=== PATIENT | male | born 1950 | race Caucasian/White ===

== ENCOUNTER 2017-06-25 08:54 | Outpatient (CLI) | payer OTHER ==
--- NOTE | 2017-06-25 12:33 | MRI ---
RIGHT SHOULDER MRI WITH IV CONTRAST: HISTORY: A 66-year-old male with right shoulder pain for two months. FINDINGS: The patient is claustrophobic and there is considerable motion artifact. Multiplanar, multisequence MRI examination of the right shoulder demonstrates considerable motion art ifact. There is no intact biceps tendon seen intraarticularly or within the bicipital groove. There are some arthrosis changes with subchondral cystic changes of the inferior glenoid, as well as a sma ll focus in the superior glenoid. The region of the superior labrum and biceps anchor is very poorly defined and has some high signal associated with it, probably related to a prior biceps tear at the anchor. There is at least a high-grade, undersurface partial-thickness tear versus a small, punctate full-thickness tear at the level of the anterior infraspinatus tendon insertion. There is also a li near high-grade, partial-thickness, undersurface insertional tear of the infraspinatus tendon, withou t evidence for tendon retraction. Prominent AC joint arthrosis changes are noted with some undersurf fernie spurring of the distal clavicle, as well as some minimal fluid and fat change in the subacromial subdeltoid bursa. The subscapularis tendon appears to be intact. The rotator cuff muscles appear wi thin normal limits in signal and volume. IMPRESSION: 1. No intact biceps tendon seen within the bicipital groove or intraarticularly. 2. Abnormal appearing superior labrum and biceps anchor region, probably related to prior biceps tea r. 3. Subchondral cystic changes in the inferior glenoid and a small focus in the superior glenoid. 4. Acromioclavicular joint arthrosis. 5. High-grade, partial-thickness undersurface tears of the supraspinatus and infraspinatus tendons a t the insertion with possible small, punctate, full-thickness component, particularly at the anterior supraspinatus. The exam is somewhat limited because of motion artifact. POS: [facility]
== END 2017-06-25 08:55 | disposition home or self-care (01) ==
LOC: SCSMRI 08:54
PROVIDERS: ATTEND Family Medicine
DX: S46.911D Strain of unspecified muscle, fascia and tendon at shoulder and upper arm level, right arm, subsequent encounter (principal); M24.811 Other specific joint derangements of right shoulder, not elsewhere classified; M19.011 Primary osteoarthritis, right shoulder; S46.011A Strain of muscle(s) and tendon(s) of the rotator cuff of right shoulder, initial encounter

== ENCOUNTER 2017-09-09 12:38 | Outpatient (CLI) | payer BC, OTHER ==
--- NOTE | 2017-09-09 15:05 | CT ---
CT BRAIN: HISTORY: Fall of tree on head. TECHNIQUE: Noncontrast enhanced CT images of the brain are obtained. FINDINGS: CT images of the brain demonstrate an approximately 5.4 mm area of hyperdensity seen at the lateral a spect of the right fourth ventricle, compatible with likely an area of intraventricular choroid plexu s calcification. No evidence of acute intracranial masses, hemorrhages, strokes, or contusions seen. No evidence of c alvarial lesions seen. No other significant abnormality is noted. 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 No acute intracranial abnormality seen. POS: [facility]
== END 2017-09-09 12:39 | disposition home or self-care (01) ==
LOC: TBSIIMAG 12:38
PROVIDERS: ATTEND Neurological Surgery
DX: S06.5X0A Traumatic subdural hemorrhage without loss of consciousness, initial encounter (principal); G93.89 Other specified disorders of brain
CPT/HCPCS: 70450

== ENCOUNTER 2017-11-22 15:44 | Outpatient (CLI) | payer OTHER ==
[2017-11-22 16:17] LABS: #Eosinphils 0.3 thou/uL (0.0-0.7); #Lymphocytes 1.2 thou/uL (1.20-3.40); #Monocytes 0.7 thou/uL (0.11-0.59); #Neutrophils 4.6 thou/uL (1.40-6.50); %Basophils 0.5 % (0.0-1.0); %Eosinophils 4.4 % (0.0-10.0); %Lymphocytes 17.1 % (21.0-51.0); %Monocytes 10.6 % (0.0-10.0); %Neutrophils 67.3 % (42.0-75.0); Mean Corpuscular HGB CONC 34.2 g/dL (32.0-36.0); Mean Corpuscular Hemoglobin 33.8 pg (27.0-31.0); Mean Corpuscular Volume 98.8 fl (80.0-94.0); Mean Platelet Volume 7.4 fL (7.4-10.4); Platelet Count 211 thou/uL (130-400); Red Blood Cell (RBC) Count 4.45 mill/uL (4.70-6.10); White Blood Cell (WBC) Count 6.8 thou/uL (4.8-10.8)
[2017-11-22 16:38] LABS: Anion Gap 11 mmol/L (10-20); BUN (Urea Nitrogen) 15 mg/dL (8.4-25.7); Calc. Creatinine Clearance 0 mL/min (70-130); Calcium 9.1 mg/dL (7.8-10.44); Carbon Dioxide 24 mmol/L (23-31); Chloride 107 mmol/L (98-107); Estimated GFR-MDRD 56; Glucose 120 mg/dL (80-115); Potassium 4.1 mmol/L (3.5-5.1); Sodium 138 mmol/L (136-145)
== END 2017-11-22 15:45 | disposition home or self-care (01) ==
LOC: LABBT 15:44
PROVIDERS: ATTEND Orthopaedic Surgery
DX: Z01.818 Encounter for other preprocedural examination (principal); M75.111 Incomplete rotator cuff tear or rupture of right shoulder, not specified as traumatic
CPT/HCPCS: 80048; 85025; 93005; 93010

== ENCOUNTER 2017-11-25 05:46 | Day surgery (SDC) | payer OTHER ==
[2017-11-22 16:08] VITALS: BMI 30.7
[2017-11-25] MEDS ORDERED: Midazolam HCl 2 mg/2 ml Vial ONE (06:32)
[2017-11-25] MEDS ORDERED: Fentanyl 100 MCG/2 ML VIAL ONE (06:32)
[2017-11-25] MEDS ORDERED: CEFAZOLIN/Water 2 GM/20 ML SYRINGE ONE (06:34)
[2017-11-25] MEDS ORDERED: Promethazine HCl 25 MG/ML VIAL IM PRN (07:08)
[2017-11-25] MEDS ORDERED: Zolpidem Tartrate 5 MG TAB PO PRN (07:08)
[2017-11-25] MEDS ORDERED: HYDROcodone/Acetaminophen 5/325 mg Tablet PO PRN ×2 (07:08)
[2017-11-25] MEDS ORDERED: traMADol HCl 50 MG TAB PO PRN ×2 (07:08)
[2017-11-25] MEDS ORDERED: Ondansetron HCl/PF 4 MG/2 ML Vial IVP PRN (07:08)
[2017-11-25] MEDS ORDERED: Ropivacaine HCl/PF 1,100 MG in Premix Bag 1 BAG NERVE BLCK SCH (07:08)
[2017-11-25] MEDS ORDERED: Ketorolac Tromethamine 30 MG/ML VIAL IVP PRN (07:08)
[2017-11-25] MEDS ORDERED: Fentanyl 100 MCG/2 ML VIAL IV PRN (07:09)
--- NOTE | 2017-11-25 09:03 | OP ---
DATE OF PROCEDURE: 11/25/2017 PREOPERATIVE DIAGNOSES: Rotator cuff tear, right shoulder with impingement. POSTOPERATIVE DIAGNOSES: Rotator cuff tear, right shoulder with impingement. PROCEDURE: Arthroscopic subacromial decompression, arthroscopic rotator cuff repair using Arthrex Tw inFix suture anchor and Arthrex self-punching SwiveLock. SURGEON: Cameron Carter M.D. ANESTHESIA: General. BLOOD LOSS: Minimal. SPECIMEN: None. DRAINS: None. COMPLICATIONS: None. PROCEDURE IN DETAIL: The patient was brought to the operating room where general anesthesia was shantal remy. He was placed in left lateral decubitus position. Right arm was placed in traction and prepped and draped in the usual sterile fashion. Scope was placed in the glenohumeral joint. There was no biceps present. There was only minimal degenerative changes. A full-thickness rotator cuff tear was seen at the supraspinatus. Scope was placed in the subacromial bursa. Bursectomy was performed. C A ligament was taken down. Anterior inferior acromioplasty was performed with a bur. I freshened up the greater tuberosity with a bur. I freshened up the rotator cuff with a shaver, placed a TwinFix suture in the humeral head. Sutures passed through the rotator cuff to have a good watertight repair and then reinforced with double row type repair using SwiveLock. Shoulder was drained. Portals edison sed with nylon suture. Sterile dressing was applied.
[2017-11-25] MEDS ORDERED: Ropivacaine 0.2% HCl/PF (40 MG/20 ML VIAL) ONE (14:17)
[2017-11-25] MEDS ORDERED: Ropivacaine 0.5% HCl/PF (150 MG/30 ML VIAL) ONE (14:17)
[2017-11-25] MEDS ORDERED: ePHEDrine/0.9% NaCl/PF SYRINGE 50 mg/10 ml ONE (15:04)
[2017-11-25] MEDS ORDERED: Ketorolac Tromethamine 30 MG/ML VIAL ONE (15:04)
[2017-11-25] MEDS ORDERED: Glycopyrrolate 0.2 MG/ML 5 ML SYRINGE ONE (15:04)
[2017-11-25] MEDS ORDERED: PHENYLEPHRINE-NS 100 MCG/ML 10 ML SYRINGE ONE (15:04)
[2017-11-25] MEDS ORDERED: PROPOFOL 200 MG/20 ML VIAL ONE (15:04)
[2017-11-25] MEDS ORDERED: Lidocaine 1% PF 5 ML VIAL ONE (15:04)
== END 2017-11-25 10:50 | disposition home or self-care (01) ==
LOC: SDC 05:46
PROVIDERS: ATTEND Orthopaedic Surgery
PROC: 0RNJ4ZZ Release Right Shoulder Joint, Percutaneous Endoscopic Approach (ICD-10-PCS; principal; 2017-11-25)
PROC: 0LM14ZZ Reattachment of Right Shoulder Tendon, Percutaneous Endoscopic Approach (ICD-10-PCS; principal; 2017-11-25)
DX: S46.011A Strain of muscle(s) and tendon(s) of the rotator cuff of right shoulder, initial encounter (principal); M75.41 Impingement syndrome of right shoulder; I10 Essential (primary) hypertension; E78.00 Pure hypercholesterolemia, unspecified; Z87.891 Personal history of nicotine dependence; Z79.02 Long term (current) use of antithrombotics/antiplatelets; Z79.82 Long term (current) use of aspirin; Z79.899 Other long term (current) drug therapy; Z95.5 Presence of coronary angioplasty implant and graft; Z95.1 Presence of aortocoronary bypass graft; X50.0XXA Overexertion from strenuous movement or load, initial encounter; X50.3XXA Overexertion from repetitive movements, initial encounter; Y99.0 Civilian activity done for income or pay
CPT/HCPCS: C1713; G8984-GP-CK; G8985-GP-CK; G8986-GP-CK; J1885; J2001; J2250; J2704; J2795; J3010

== ENCOUNTER → 2017-11-26 | Day surgery (SDC) | payer OTHER ==
[~2017-11-26] MED LIST: Ropivacaine 0.2% HCl/PF (40 MG/20 ML VIAL) ONE; Ropivacaine 0.5% HCl/PF (150 MG/30 ML VIAL) ONE; Sodium Chloride 0.9% 10 ML ONE
== END ==
LOC: SDC/OP 13:00
PROVIDERS: ATTEND Anesthesiology
PROC: 3E0T3BZ Introduction of Anesthetic Agent into Peripheral Nerves and Plexi, Percutaneous Approach (ICD-10-PCS; principal; 2017-11-26)
DX: T82.524A Displacement of infusion catheter, initial encounter (principal); G89.18 Other acute postprocedural pain
CPT/HCPCS: J2795

== ENCOUNTER 2017-11-28 16:38 | Emergency (ER) | payer MEDICARE, BC ==
[2017-11-28] MEDS ORDERED: Dexamethasone 4 mg/ml Vial ONE (17:16)
== END 2017-11-28 17:25 | disposition home or self-care (01) ==
LOC: ERS 16:38
DX: J04.0 Acute laryngitis (principal); B97.89 Other viral agents as the cause of diseases classified elsewhere; I25.2 Old myocardial infarction; E78.5 Hyperlipidemia, unspecified; I10 Essential (primary) hypertension; Z87.891 Personal history of nicotine dependence; Z79.899 Other long term (current) drug therapy
CPT/HCPCS: 99283; J1100